=== PATIENT | female | born 1940 | race Caucasian/White ===

== ENCOUNTER 2016-04-17 13:38 | Outpatient (CLI) | payer MEDICARE, OTHER | END 2016-04-17 23:59 | DX: N05.9 Unspecified nephritic syndrome with unspecified morphologic changes (principal); D70.9 Neutropenia, unspecified; E83.30 Disorder of phosphorus metabolism, unspecified; N25.81 Secondary hyperparathyroidism of renal origin; M10.00 Idiopathic gout, unspecified site ==

== ENCOUNTER 2016-05-16 13:50 | Outpatient (CLI) | payer MEDICARE, OTHER | END 2016-05-16 13:51 | disposition home or self-care (01) | DX: Z12.31 Encounter for screening mammogram for malignant neoplasm of breast (principal) ==

== ENCOUNTER 2016-05-24 13:05 | Outpatient (CLI) | payer MEDICARE, OTHER | END 2016-05-24 13:06 | disposition home or self-care (01) | DX: M81.0 Age-related osteoporosis without current pathological fracture (principal); Z78.0 Asymptomatic menopausal state ==

== ENCOUNTER 2016-08-16 13:36 | Outpatient (CLI) | payer MEDICARE, OTHER ==
[2016-08-16 18:55] LABS: HCT - HEMATOCRIT 32.9 % (37.0-47.0); HGB - HEMOGLOBIN 10.6 g/dL (12.0-16.0); MEAN CORPUSCULAR HEMOGLOBIN 26.6 pg (27.0-31.0); MEAN CORPUSCULAR HGB CONC 32.3 g/dL (32.0-36.0); MEAN CORPUSCULAR VOLUME 82.3 fL (81.0-99.0); MEAN PLATELET VOLUME 8.6 fL (7.9-10.8); RED CELL DISTRIBUTION WIDTH 17.8 % (12.0-15.0); WHITE BLOOD COUNT 11.6 x10^3/uL (4.8-10.8)
[2016-08-16 19:15] LABS: HEMOGLOBIN A1C 0.55 g/dL
[2016-08-16 19:36] LABS: CALCIUM 9.6 mg/dL (8.5-10.3); CARBON DIOXIDE - CO2 22 mmol/L (21-32); CHLORIDE 106 mmol/L (101-111); CHOL/HDL RATIO 8.7 (<4.4); CHOLESTEROL 199 mg/dL; CREATININE 4.8 mg/dL (0.4-1.0); GFR - MDRD 9 (>89); GLUCOSE 114 mg/dL (70-100); HDL CHOLESTEROL 23 mg/dL; IRON 32 ug/dL (28-170); PHOSPHORUS 5.7 mg/dL (2.5-4.6); SODIUM 141 mmol/L (135-145); TOTAL IRON BINDING CAPACITY 295 ug/dL (250-450); TRANSFERRIN 211 mg/dL (192-382); TRIGLYCERIDES 507 mg/dL
[2016-08-16 19:38] LABS: BUN - BLOOD UREA NITROGEN 84 mg/dL (6-20)
[2016-08-16 20:02] LABS: LDL CHOLESTEROL,DIRECT 73 mg/dL
== END 2016-08-16 13:37 | disposition home or self-care (01) ==
LOC: LAB.WCP 13:36
PROVIDERS: ATTEND Family Medicine
DX: E78.5 Hyperlipidemia, unspecified (principal); E11.65 Type 2 diabetes mellitus with hyperglycemia; D50.0 Iron deficiency anemia secondary to blood loss (chronic); N05.9 Unspecified nephritic syndrome with unspecified morphologic changes; D70.9 Neutropenia, unspecified; E83.30 Disorder of phosphorus metabolism, unspecified; N25.81 Secondary hyperparathyroidism of renal origin
CPT/HCPCS: 36415; 80048; 80061; 83036; 83540; 83970; 84100; 84466

== ENCOUNTER 2016-08-30 14:55 | Outpatient (CLI) | payer MEDICARE, OTHER ==
[2016-08-30 19:42] LABS: CALCIUM 9.4 mg/dL (8.5-10.3); CREATININE 4.5 mg/dL (0.4-1.0); POTASSIUM 3.7 mmol/L (3.5-5.0)
== END 2016-08-30 14:56 | disposition home or self-care (01) ==
LOC: LAB.WCP 14:55
PROVIDERS: ATTEND Internal Medicine Nephrology
DX: N05.9 Unspecified nephritic syndrome with unspecified morphologic changes (principal); R06.2 Wheezing; I10 Essential (primary) hypertension
CPT/HCPCS: 36415; 80048; 83880

== ENCOUNTER 2016-09-24 14:03 | Outpatient (CLI) | payer MEDICARE, OTHER ==
[2016-09-24 20:05] LABS: BASOPHILS # (AUTO) 0.2 10^3/uL (0.0-0.1); BASOPHILS % (AUTO) 1.4 %; EOSINOPHILS # (AUTO) 0.4 10^3/uL (0.0-0.7); EOSINOPHILS % (AUTO) 3.5 %; HCT - HEMATOCRIT 33.7 % (37.0-47.0); HGB - HEMOGLOBIN 10.8 g/dL (12.0-16.0); LYMPHOCYTES % (AUTO) 16.9 %; MEAN CORPUSCULAR HEMOGLOBIN 26.7 pg (27.0-31.0); MEAN CORPUSCULAR HGB CONC 32.1 g/dL (32.0-36.0); MEAN CORPUSCULAR VOLUME 83.3 fL (81.0-99.0); MEAN PLATELET VOLUME 8.5 fL (7.9-10.8); MONOCYTES # (AUTO) 0.8 10^3/uL (0.0-1.0); MONOCYTES % (AUTO) 7.1 %; NEUTROPHILS # (AUTO) 8.4 10^3/uL (1.5-6.6); NEUTROPHILS % (AUTO) 71.1 %; RED BLOOD COUNT 4.05 10^6/uL (4.20-5.40); RED CELL DISTRIBUTION WIDTH 18.8 % (12.0-15.0); UNCORRECTED WHITE BLOOD COUNT 11.8 x10^3/uL; WHITE BLOOD COUNT 11.8 x10^3/uL (4.8-10.8)
[2016-09-24 20:16] LABS: CALCIUM 9.6 mg/dL (8.5-10.3); CREATININE 4.8 mg/dL (0.4-1.0); POTASSIUM 3.8 mmol/L (3.5-5.0)
== END 2016-09-24 14:04 | disposition home or self-care (01) ==
LOC: LAB.WCP 14:03
PROVIDERS: ATTEND Internal Medicine Nephrology
DX: N05.9 Unspecified nephritic syndrome with unspecified morphologic changes (principal); R06.2 Wheezing; D70.9 Neutropenia, unspecified
CPT/HCPCS: 36415; 80048; 83880; 85025

== ENCOUNTER 2016-10-11 13:49 | Outpatient (CLI) | payer MEDICARE, OTHER ==
[2016-10-12 14:36] LABS: TEST RESULT REPORT (())
[2016-10-12 15:02] LABS: TEST RESULT REPORT (())
== END 2016-10-11 13:50 | disposition home or self-care (01) ==
LOC: LAB.WCP 13:49
PROVIDERS: ATTEND Internal Medicine Nephrology
DX: B19.10 Unspecified viral hepatitis B without hepatic coma (principal)
CPT/HCPCS: 36415; 81599; 86317; 86704; 86803; 87340

== ENCOUNTER 2017-04-20 13:02 | Outpatient (CLI) | payer MEDICARE, OTHER ==
--- NOTE | 2017-04-21 21:29 | MRI Report ---
EXAM: MRI PELVIS WITHOUT CONTRAST EXAM DATE: 04/20/2017 02:18 PM. CLINICAL HISTORY: Right hip mass. The patient noticed a palpable mass right buttock 6 months ago. COMPARISON: CT pelvis 04/07/2013.. TECHNIQUE: Multiplanar, multisequence T1-weighted and fluid-sensitive sequences of the pelvis without contrast. Other: None. FINDINGS: Bones: No fractures or subluxations. No marrow edema or bone lesions. Lower Lumbar Spine: Unremarkable. Sacroiliac Joints: No effusion or sacroiliitis. Right Hip: Severe right hip osteoarthritis with severe chondromalacia and femoral head subcortical de generative cysts. Negative for increased fluid. Left Hip: Severe left hip osteoarthritis. The left hip is without increased fluid. Symphysis Pubis: Unremarkable. Sacroiliac joints: Within normal limits. Musculature: Diffuse muscle atrophy. Low lumbar, sacrum and posterior paraspinal muscle atrophy. Pelvic Cavity: Uterus is anteverted. Left anterior lower uterine segment 2-cm intramural fibroid. Lef t anterior uterine body subserosal 2.2-cm fibroid. Left anterior fundus 1.4-cm submucosal fibroid. [place] th ovaries identified. Negative for abnormal adnexal mass. Pelvic cul-de-sac is free of fluid. Bladde r is nondistended. Negative for focal bladder mass. Other: Right gluteal clustered subcutaneous fat signal partially encapsulated nodules, 4 cm in transv erse dimension and 5 cm in height (image 21 series 301 and image 37 series 501) which corresponds to decreased signal on the coronal STIR sequence. Far lateral left buttock subcutaneous similar encapsul ated fat signal nodules (image 25 series 501) that corresponds to decreased signal on the STIR sequen ce (image 17 series 401), negative for subcutaneous gas as noted on the CT pelvis 04/07/2013. Negativ e for edema to suggest active inflammation. IMPRESSION: 1. Negative for necrotizing cellulitis as noted on the CT pelvis 04/07/2013. 2. The lobulated subcutaneous bilateral gluteal partially encapsulated fat signal masses on the T1-we ighted images, which correspond to decreased signal on the fat saturation proton density and STIR seq uences, are likely secondary to remote fat necrosis or injection granulomas. [facility] MUSCULOSKELETAL RADIOLOGY SECTION Referring Provider Line: [phone] SITE ID: [id number]
== END 2017-04-20 13:03 | disposition home or self-care (01) ==
LOC: DI 13:02
PROVIDERS: ATTEND Family Medicine
DX: R22.2 Localized swelling, mass and lump, trunk (principal)
CPT/HCPCS: 72195

== ENCOUNTER 2017-08-08 13:44 | Outpatient (CLI) | payer MEDICARE, OTHER ==
--- NOTE | 2017-08-09 12:11 | Mammography Report ---
SCREENING MAMMOGRAM: 08/08/2017 COMPARISON: 05/16/2016, 11/15/2008, 11/25/2007. TECHNIQUE: Bilateral CC and MLO projections. FINDINGS: There are scattered fibroglandular densities. There is extensive vascular calcification in both breasts. There is no dominant mass, skin thickening, architectural distortion or suspicious new microcalcifications. No significant interval change. IMPRESSION: BI-RADS 2 - BENIGN. RECOMMENDATION: Return to routine screening in 12 months. STANDARD QUALIFYING STATEMENTS: 1. This examination was reviewed with the aid of Computer-Aided Detection (CAD). 2. A negative or benign imaging report should not delay biopsy if clinically suspicious findings are present. Consider surgical consultation if warranted. More than 5% of cancers are not identified by imaging. 3. Dense breasts may obscure an underlying neoplasm. TD: 08/09/2017 11:58
== END 2017-08-08 13:45 | disposition home or self-care (01) ==
LOC: DI 13:44
PROVIDERS: ATTEND Family Medicine
DX: Z12.31 Encounter for screening mammogram for malignant neoplasm of breast (principal)
CPT/HCPCS: 77067

== ENCOUNTER 2018-04-24 15:55 | Outpatient (CLI) | payer MEDICARE, OTHER ==
--- NOTE | 2018-04-25 12:36 | Ultrasound Report ---
Reason: POSTMENOPAUSAL BLEEDING Procedure Date: 04/24/2018 Accession Number: [id number] / [id number] Procedure: US - Pelvic w/Transvaginal CPT Code: FULL RESULT: EXAM: PELVIC ULTRASOUND EXAM DATE: 04/24/2018 05:32 PM. CLINICAL HISTORY: Postmenopausal bleeding. COMPARISON: MR pelvis w/o contrast 04/20/2017 1:30 PM. TECHNIQUE: Realtime transabdominal pelvic scan performed to identify the uterus and adnexa and as an overview of other pelvic structures, followed by transvaginal scan to provide greater detail of the uterus and adnexa, with static image documentation. FINDINGS: The transabdominal examination is limited by a nondistended urinary bladder and the transvaginal examination is markedly limited by echogenic material obscuring the ultrasound window in the region of the cervix. The CT in 2013 reveals hyperdense material filling the periuterine and cervical venous structures, possible prior surgical or endovascular intervention. An intrauterine device is seen on the 2014 CT. Uterus: 7.1 x 4.4 x 6.7 cm, volume 109 cc. Anteverted position. Abnormal calcifications and limited visualization. Masses: No definite mass is seen, known fibroids demonstrated on the prior MRI. Endometrium: 7 mm. Limited evaluation, subjectively thick with multiple echogenic foci towards the cervix. Cervix: Calcifications as above. Right Ovary: Not seen. Left Ovary: Not seen. Free Fluid: None. Other: None. IMPRESSION: Very limited examination with abnormal calcifications in the cervical and endometrial regions. [facility]
== END 2018-04-24 15:56 | disposition home or self-care (01) ==
LOC: DI 15:55
PROVIDERS: ATTEND Family Medicine
DX: N95.0 Postmenopausal bleeding (principal)
CPT/HCPCS: 76830; 76856

== ENCOUNTER 2018-05-15 14:16 | Outpatient (CLI) | payer MEDICARE, OTHER | END 2018-05-15 14:17 | disposition short-term general hospital (02) | LOC: EMS 14:16 | PROVIDERS: ATTEND Surgery | DX: R10.30 Lower abdominal pain, unspecified (principal); R21 Rash and other nonspecific skin eruption; R00.0 Tachycardia, unspecified; R53.1 Weakness | CPT/HCPCS: A0425; A0427 ==

== ENCOUNTER 2018-05-23 17:13 | Outpatient (CLI) | payer MEDICARE, OTHER | END 2018-05-23 17:14 | disposition critical access hospital (66) | LOC: EMS 17:13 | PROVIDERS: ATTEND Surgery | DX: R10.9 Unspecified abdominal pain (principal); L97.119 Non-pressure chronic ulcer of right thigh with unspecified severity; L98.499 Non-pressure chronic ulcer of skin of other sites with unspecified severity; Z99.2 Dependence on renal dialysis | CPT/HCPCS: A0425; A0429 ==

== ENCOUNTER 2018-05-23 17:29 | Emergency (ER) | payer MEDICARE, OTHER ==
--- NOTE | 2018-05-23 17:47 | ED Physician Documentation ---
History of Present Illness - Stated complaint Stated Complaint: WOUND CARE - Chief complaint Chief Complaint: Wound - Additonal information Additional information: 77-year-old female who was brought to the emergency department by EMS for eval uation of weakness and general fatigue. The patient was recently treated for wound infections but is having difficulty explaining the wound infections. In fact the patient is a poor historian and is having difficulty explaining When her weakness started and why she is in the emergency department. The patient just keeps repeating that she is generally weak. Review of Systems Unable to obtain: Confused Constitutional: reports: Fatigue. denies: Fever Cardiac: denies: Chest pain / pressure GI: denies: Abdominal Pain, Vomiting, Diarrhea Skin: denies: Rash Musculoskeletal: denies: Neck pain Neurologic: reports: Generalized weakness PD PAST MEDICAL HISTORY - Past Medical History Cardiovascular: Hypertension, Atrial fibrillation Endocrine/Autoimmune: Type 2 diabetes : Renal insuffiency - Past Surgical History Past Surgical History: Yes - Present Medications Home Medications: Ambulatory Orders Medication Instructions Recorded Confirmed Warfarin [Coumadin] 4 mg PO DAILY PM 01/16/13 05/23/18 Atorvastatin Calcium 20 mg PO DAILY PM 04/07/13 05/23/18 Acetaminophen 650 mg PO PRN 05/23/18 Allopurinol 150 mg PO DAILY PM 05/23/18 05/23/18 Cinacalcet HCl [Sensipar] 90 mg PO 05/23/18 Diclofenac Sodium [Voltaren] 2 gm TP TID PRN 05/23/18 05/23/18 Digoxin [Lanoxin] 125 mcg PO DAILY PM 05/23/18 05/23/18 Diltiazem HCl [Dilt-Xr] 240 mg PO DAILY 05/23/18 05/23/18 Ferrous Sulfate 325 mg PO BID 05/23/18 05/23/18 Metoprolol Succinate [Toprol Xl] 100 mg PO DAILY PM 05/23/18 05/23/18 Warfarin [Coumadin] 6 mg PO DAILY PM 05/23/18 05/23/18 - Allergies Allergies/Adverse Reactions: Allergies Allergy/AdvReac Type Severity Reaction Status Date / Time No Known Drug Allergies Allergy Verified 12/26/12 16:14 - Social History Does the pt smoke?: No Smoking Status: Never smoker Does the pt drink ETOH?: No Does the pt have substance abuse?: No PD ED PE NORMAL - General General: Other (77-year-old female who appears to be in a poor state of health but is in no acute distress) - HEENT HEENT: Atraumatic, PERRL, EOMI, Ears normal - Cardiac Cardiac: RRR, Strong equal pulses - Respiratory Respiratory: No respiratory distress - Abdomen Abdomen: Other (The patient has chronic abdominal wounds which have a strong malodorous scent with surrounding erythema and I am concerned for an acute superimposed infection) - Derm Derm: Normal color - Extremities Extremities: No deformity - Neuro Neuro: Other (The patient's alert, cooperative, has no acute focal deficit) - Psych Psych: Normal affect Results - Vitals Vitals: Vital Signs - 24 hr 05/23/18 05/23/18 17:30 19:41 Temperature 36.1 C L Heart Rate 88 88 Respiratory 18 16 Rate Blood Pressure 144/74 H 151/72 H O2 Saturation 96 96 Oxygen O2 Source Room air - EKG (time done) 18:09 Rate: Rate (enter#) Rhythm: Atrial fibrillation Intervals: QRS normal Ischemia: Non specific changes - Labs Labs: Laboratory Tests 05/23/18 05/23/18 05/23/18 17:56 17:56 17:56 WBC 16.3 H RBC 4.24 Hgb 12.2 Hct 37.9 MCV 89.4 MCH 28.7 MCHC 32.2 RDW 15.9 H Plt Count 376 MPV 8.0 Neut # (Auto) 13.0 H Lymph # (Auto) 1.9 [place] # (Auto) 1.1 H Eos # (Auto) 0.1 Baso # (Auto) 0.2 H Absolute Nucleated RBC 0.01 Nucleated RBC % 0.0 PT 37.1 H INR 3.3 H VBG pH VBG pCO2 VBG pO2 VBG HCO3 VBG Total CO2 VBG O2 Saturation VBG Base Excess VBG Total Hgb VBG Oxyhemoglobin VBG Carboxyhemoglobin VBG Methemoglobin Sodium 139 Potassium 5.1 H Chloride 90 L Carbon Dioxide 19 L Anion Gap 30.0 H BUN 64 H Creatinine 7.3 H* Estimated GFR (MDRD) 5 L Glucose 90 Lactic Acid Calcium 8.8 Total Bilirubin 0.9 AST 18 ALT 19 Alkaline Phosphatase 100 Total Creatine Kinase 32 Troponin I B-Natriuretic Peptide Total Protein 7.4 Albumin 3.1 L Globulin 4.3 H Albumin/Globulin Ratio 0.7 L Lipase 47 TSH Salicylates < 6.0 Acetaminophen < 10 L Ethyl Alcohol < 5.0 05/23/18 05/23/18 05/23/18 17:56 17:56 17:56 WBC RBC Hgb Hct MCV MCH MCHC RDW Plt Count MPV Neut # (Auto) Lymph # (Auto) [place] # (Auto) Eos # (Auto) Baso # (Auto) Absolute Nucleated RBC Nucleated RBC % PT INR VBG pH VBG pCO2 VBG pO2 VBG HCO3 VBG Total CO2 VBG O2 Saturation VBG Base Excess VBG Total Hgb VBG Oxyhemoglobin VBG Carboxyhemoglobin VBG Methemoglobin Sodium Potassium Chloride Carbon Dioxide Anion Gap BUN Creatinine Estimated GFR (MDRD) Glucose Lactic Acid 1.0 Calcium Total Bilirubin AST ALT Alkaline Phosphatase Total Creatine Kinase Troponin I < 0.04 B-Natriuretic Peptide 666 H Total Protein Albumin Globulin Albumin/Globulin Ratio Lipase TSH Salicylates Acetaminophen Ethyl Alcohol 05/23/18 05/23/18 05/23/18 17:56 17:56 17:56 WBC RBC Hgb Hct MCV MCH MCHC RDW Plt Count MPV Neut # (Auto) Lymph # (Auto) [place] # (Auto) Eos # (Auto) Baso # (Auto) Absolute Nucleated RBC Nucleated RBC % PT INR VBG pH 7.398 VBG pCO2 36.2 L VBG pO2 40.8 VBG HCO3 21.8 L VBG Total CO2 22.9 L VBG O2 Saturation 71.7 VBG Base Excess -2.5 L VBG Total Hgb 13.4 VBG Oxyhemoglobin 71 L VBG Carboxyhemoglobin 0.9 VBG Methemoglobin 0.0 Sodium Potassium Chloride Carbon Dioxide Anion Gap BUN Creatinine Estimated GFR (MDRD) Glucose Lactic Acid Calcium Total Bilirubin AST ALT Alkaline Phosphatase Total Creatine Kinase Troponin I B-Natriuretic Peptide Total Protein Albumin Globulin Albumin/Globulin Ratio Lipase TSH 1.50 Salicylates Acetaminophen Ethyl Alcohol PD MEDICAL DECISION MAKING - ED course ED course: The patient missed her dialysis today and is in need of dialysis, the patient also appears to have infected abdominal wounds which may be contributing to her profound weakness. The patient is also in A. fib with RVR which responded with Cardizem. The patient will require admission to the hospital for ongoing therapy. Unfortunately, our facility does not have the ability to provide dialysis and the patient will be transferred. The patient request being transferred to [facility] since she does not want to go back to the prior hospital she was at. The case was discussed with the hospitalist at [facility] Dr. Aldrich who accepts the patient onto her service. Currently, the patient is stable for transfer Departure - Departure Disposition: 02 Transfer Acute Care Hosp Clinical Impression: Infected open wound, ESRD (end stage renal disease) on dialysis, Atrial fibrillation with RVR Condition: Good
[2018-05-23 18:02] LABS: VBG BASE EXCESS -2.5 mmol/L (-2 - +2); VBG PCO2 36.2 mmHg (41-51); VBG PH 7.398 (7.31-7.41); VBG PO2 40.8 mmHg (25-47); VBG TOTAL CO2 22.9 mmol/L (24-29)
[2018-05-23 18:03] LABS: BASOPHILS # (AUTO) 0.2 10^3/uL (0.0-0.1); EOSINOPHILS # (AUTO) 0.1 10^3/uL (0.0-0.7); EOSINOPHILS % (AUTO) 0.7 %; HGB - HEMOGLOBIN 12.2 g/dL (12.0-16.0); LYMPHOCYTES # (AUTO) 1.9 10^3/uL (1.5-3.5); LYMPHOCYTES % (AUTO) 11.8 %; MEAN CORPUSCULAR HEMOGLOBIN 28.7 pg (27.0-31.0); MEAN CORPUSCULAR HGB CONC 32.2 g/dL (32.0-36.0); MEAN CORPUSCULAR VOLUME 89.4 fL (81.0-99.0); MONOCYTES # (AUTO) 1.1 10^3/uL (0.0-1.0); MONOCYTES % (AUTO) 6.9 %; NEUTROPHILS % (AUTO) 79.6 %; PLT - PLATELET COUNT 376 10^3/uL (130-450); RED BLOOD COUNT 4.24 10^6/uL (4.20-5.40); RED CELL DISTRIBUTION WIDTH 15.9 % (12.0-15.0); WHITE BLOOD COUNT 16.3 x10^3/uL (4.8-10.8)
[2018-05-23 18:11] LABS: INR 3.3 (0.8-1.2); PT - PROTHROMBIN TIME 37.1 secs (9.9-12.6)
[2018-05-23] MEDS ORDERED: diltiaZEM INJ 5 MG/ML VIAL IVP STA (18:16)
[2018-05-23 18:24] LABS: ACETAMINOPHEN < 10 ug/mL (10-30); ALBUMIN 3.1 g/dL (3.2-5.5); ALBUMIN/GLOBULIN RATIO 0.7 (1.0-2.2); ALKALINE PHOSPHATASE 100 IU/L (42-121); ALT ALANINE AMINOTRANSFERASE 19 IU/L (10-60); AST ASPARTATE AMINOTRANSFERASE 18 IU/L (10-42); BILIRUBIN,TOTAL 0.9 mg/dL (0.2-1.0); BUN - BLOOD UREA NITROGEN 64 mg/dL (6-20); CALCIUM 8.8 mg/dL (8.5-10.3); CARBON DIOXIDE - CO2 19 mmol/L (21-32); CHLORIDE 90 mmol/L (101-111); CK- CREATINE KINASE 32 IU/L (22-269); GFR - MDRD 5 (>89); GLUCOSE 90 mg/dL (70-100); LIPASE 47 U/L (22-51); SALICYLATE < 6.0 mg/dL; SODIUM 139 mmol/L (135-145); TOTAL PROTEIN 7.4 g/dL (6.7-8.2)
[2018-05-23 18:25] LABS: CREATININE 7.3 mg/dL (0.4-1.0)
[2018-05-23] MEDS ORDERED: AMPICILLIN/SULBACTAM 3 GM in SODIUM CHLORIDE 0.9% MINIBAG 100 ML IV STA (18:41)
--- NOTE | 2018-05-23 19:00 | XRAY Report ---
Reason: cp Procedure Date: 05/23/2018 Accession Number: [id number] / [id number] Procedure: XR - Chest 2 View X-Ray CPT Code: 97719 FULL RESULT: EXAM: CHEST RADIOGRAPHY EXAM DATE: 05/23/2018 06:30 PM. CLINICAL HISTORY: Chest pain. Rapid heart rate. Increased shortness of breath. COMPARISON: CHEST 2 VIEW PA/LAT 09/18/2016 1:49 PM. TECHNIQUE: 2 views. FINDINGS: Lungs/Pleura: Lingular scarring, otherwise no focal opacities evident. No pleural effusion. No pneumothorax. Normal volumes. Mediastinum: Large heart. Other: No compression fractures. Degenerative changes of both shoulders. IMPRESSION: Cardiomegaly without CHF or acute pulmonary abnormality. [facility]
[2018-05-23] MEDS ORDERED: CLINDAMYCIN 600 MG/50 ML 50 ML IV ONE (19:38)
[2018-05-23 19:43] VITALS: BP 151/72
== END 2018-05-23 20:34 | disposition short-term general hospital (02) ==
LOC: EDUNIT# → ED 17:29
DX: S31.109A Unspecified open wound of abdominal wall, unspecified quadrant without penetration into peritoneal cavity, initial encounter (principal); L08.9 Local infection of the skin and subcutaneous tissue, unspecified; X58.XXXA Exposure to other specified factors, initial encounter; I12.0 Hypertensive chronic kidney disease with stage 5 chronic kidney disease or end stage renal disease; E11.22 Type 2 diabetes mellitus with diabetic chronic kidney disease; N18.6 End stage renal disease; Z99.2 Dependence on renal dialysis; I48.91 Unspecified atrial fibrillation; Z79.01 Long term (current) use of anticoagulants
CPT/HCPCS: 36415; 71046; 80053; 80307; 80320; 80329; 82375; 82550; 82803; 83605; 83690; 83880; 84443; 84484; 85025; 85610; 87040; 93005; 96365; 96375; 99284; 99285

== ENCOUNTER 2018-05-23 20:29 | Outpatient (CLI) | payer MEDICARE, OTHER | END 2018-05-23 20:30 | disposition short-term general hospital (02) | LOC: EMS 20:29 | PROVIDERS: ATTEND Surgery | DX: S31.109A Unspecified open wound of abdominal wall, unspecified quadrant without penetration into peritoneal cavity, initial encounter (principal); X58.XXXA Exposure to other specified factors, initial encounter; I48.91 Unspecified atrial fibrillation; Z99.2 Dependence on renal dialysis | CPT/HCPCS: A0425; A0426 ==